=== PATIENT | female | born 1980 | race Caucasian/White ===

== ENCOUNTER → 2016-07-10 | Outpatient (CLI) | payer OTHER, SELFPAY ==
[~2016-07-10] MED LIST: ADVIL200 MG PO; CELEXA40 MG PO; KLONOPIN1 MG PO; NICOTINE PATCH1 EAC1 TOP; WELLBUTRIN SR150 MG PO; [UNRECOGNIZED DRUG - REMARK] PO
== END | disposition disaster alternative care site (69) ==
LOC: GRAD 07-04 17:00
DX: R92.2 Inconclusive mammogram (principal)
CPT/HCPCS: A9577; C8908; Q9967

== ENCOUNTER → 2016-07-22 | Outpatient (CLI) | payer OTHER ==
--- NOTE | 2016-07-22 09:45 | NUR ---
[facility]. Introduced self to patient and explained role of navigator. Permission received to make follow up call tomorrow. Navigator brochure given.
--- NOTE | 2016-07-23 13:54 | NUR ---
Follow up call made. Patient doing well. Swelling has gone down. Has some bruising. Pain is controlled. Very pleased with care she received. No questions or concerns.
== END | disposition disaster alternative care site (69) ==
LOC: GOPD 07-16 → GBCOE 09:36
PROC: 0H9U3ZX Drainage of Left Breast, Percutaneous Approach, Diagnostic (ICD-10-PCS; principal; 2016-07-22)
DX: R92.0 Mammographic microcalcification found on diagnostic imaging of breast (principal)
CPT/HCPCS: J7050

== ENCOUNTER → 2016-10-14 | Outpatient (CLI) | payer OTHER | END | disposition disaster alternative care site (69) | LOC: GRAD 09:29 | DX: D35.2 Benign neoplasm of pituitary gland (principal); E66.9 Obesity, unspecified ==

== ENCOUNTER → 2016-10-15 | Outpatient (CLI) | payer OTHER ==
--- NOTE | ~2016-10-15 | NDGEN ---
PATIENT'S NAME: JANNETTE LANGLEY [facility] AGE: 36 Y [address] ROOM: [place] [id number] LOCATION: [facility] ADMIT DATE: 10/15/2016 Neurodiagnostics DISCHARGE DATE: FAMILY PHYSICIAN: Enedleia Hawkins MD ATTENDING PHYSICIAN: WILLIS VELÁSQUEZ DATE OF PROCEDURE: 10/15/2016 PROCEDURE PERFORMED: A nerve conduction study with an EMG of the left upper extremity. 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 Her pain is mostly into the thenar eminence of the left hand which also prevents her from fully opposing the left thumb to the pinky when she has pain. She does not completely complain about any tingling or numbness into the fingers presently. Nonetheless, the symptoms are consistent with carpal tunnel syndrome. FINDINGS: Nerve conduction studies of the bilateral upper extremities were performed in the median, ulnar, motor, and sensory nerves and compared to the right side. There was slowing of the median motor onset latencies at 4.7 milliseconds, with diminished amplitudes of the compound motor action potential in the median nerve compared to the right side. The nerve conduction velocities were slightly slower than on the right. In the right median nerve, there were normal parameters. The bilateral ulnar motor studies were normal. On the left median sensory nerves, there were prolonged peak onset latencies at 4.2 milliseconds. The right median sensory nerve potentials as well as the bilateral ulnar sensory nerve action potentials were within normal limits. Next, a needle was placed into the left abductor pollicis brevis, to look for any evidence of spontaneous electrical activity such as fibrillations or positive sharp waves. This was normal here. She had full recruitment of motor unit action potentials at the abductor pollicis brevis muscle. She did not have any other symptoms going up into the forearm or into the arm. Thus no further needle EMG was necessary for this patient. PATIENT'S NAME: JANNETTE LANGLEY [facility] AGE: 36 Y [address] ROOM: [place] [address] LOCATION: 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 She has prolonged sensory nerve peak onset latencies as well as delayed motor onset latencies with diminished amplitudes. The patient should have carpal tunnel release surgery due to her symptoms as conservative therapy would not be helpful at this time. MD RAMÓN NG/chey /[id number] dtt: 11/04/16 1622 , ALTHEA CLINTON dtd: 10/15/16 1645
== END | disposition disaster alternative care site (69) ==
LOC: GNEU 14:48
DX: M79.642 Pain in left hand (principal); M25.532 Pain in left wrist; G62.9 Polyneuropathy, unspecified; R20.0 Anesthesia of skin